=== PATIENT | male | born 1965 | race Caucasian/White ===

== ENCOUNTER 2017-03-28 19:53 | Emergency (ER) | payer MEDICAID ==
[~2017-03-28] VITALS: Ht 172.7 cm; Wt 145.1 kg
[~2017-03-28 19:53] MED LIST: ALBU2.5V13 NEB; AMLO10TA2 PO; Acetaminophen PO; BISA10SU12 RC; Blood Sugar Diagnostic VI; CALC667C PO; CARV25TA2 PO; CLON0.2T12 PO; DEXT50DI8 IV; FERR-58 PO; FLUT16SP NS; FOLI0.8T2 PO; FURO-152 PO; GLIM1TAB PO; HEPA50007 SQ; HYDR28.3 TOP; HYDR50TA68 PO; INSU100V28 SQ; LACT10SO7 GT; MENT71OI TOP; Metoclopramide Hcl PO; PANT40TA2 PO
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
--- NOTE | 2017-03-28 22:00 | NUR ---
Dr. Herron at bedside for MSE, awaiting further orders.
--- NOTE | 2017-03-28 22:20 | NUR ---
x-rays obtained, pt waiting for CT
[2017-03-28] MEDS: IBUPROFEN 800 MG TABLET PO ONE (22:35)
[2017-03-28] MEDS: TDAP DIPH,PERTUSS,TET VAC/PF 0.5 ML DISP.SYRIN IM ONE (22:35)
--- NOTE | 2017-03-28 22:40 | NUR ---
Pt medicated for discomfort, will monitor for effects of medication. Pt also given tdap, will monitor for any adverse reactions.
[2017-03-28] MEDS ORDERED: IBUPROFEN 800 MG TABLET ONE (22:43)
[2017-03-28] MEDS ORDERED: TDAP DIPH,PERTUSS,TET VAC/PF 0.5 ML DISP.SYRIN IM ONE (22:44)
--- NOTE | 2017-03-28 23:45 | NUR ---
Pt to and from CT via [facility].
[2017-03-29] MEDS: OXYCODONE/APAP 5-325 MG TABLET PO ONE (00:24)
--- NOTE | 2017-03-29 00:25 | NUR ---
Pt stable for discharge per Dr. Herorn. Pt given ACI. Pt verbalized understanding of dc instructions. Pt ambulated out of ER with steady gait to wr to wait for ride home.
[2017-03-29] MEDS ORDERED: OXYCODONE/APAP 5-325 MG TABLET ONE (00:34)
[2017-03-29 01:02] VITALS: BP 158/80
== END 2017-03-29 00:25 | disposition home or self-care (01) ==
LOC: ER 19:54
DX: S80.211A Abrasion, right knee, initial encounter (principal); I10 Essential (primary) hypertension; E78.00 Pure hypercholesterolemia, unspecified; E11.9 Type 2 diabetes mellitus without complications; K21.9 Gastro-esophageal reflux disease without esophagitis; Z88.0 Allergy status to penicillin; Z88.2 Allergy status to sulfonamides; Z86.74 Personal history of sudden cardiac arrest; Z98.890 Other specified postprocedural states; V29.9XXA Motorcycle rider (driver) (passenger) injured in unspecified traffic accident, initial encounter; Y93.89 Activity, other specified; Y92.413 State road as the place of occurrence of the external cause; Y99.8 Other external cause status
CPT/HCPCS: 72125; 73060; 73564 ×2; 73590; 73610; 90471; 90715; 93971; 99284; A4663

== ENCOUNTER 2018-01-23 16:01 | Emergency (ER) | payer MEDICAID ==
[~2018-01-23] VITALS: Ht 172.7 cm; Wt 152.0 kg
[~2018-01-23 16:01] MED LIST changes: -AMLO10TA2 PO; +AMLO10TA6 PO; -FERR-58 PO; +FERR325T24 PO
--- NOTE | 2018-01-23 16:13 | NUR ---
ROBY Kwong at the bedside for MSE.
[2018-01-23 16:33] VITALS: BP 146/80
--- NOTE | 2018-01-23 16:34 | NUR ---
Patient discharged to home in stable conditon. Written and verbal after care instructions given. Patient verbalizes understanding of instructions.
== END 2018-01-23 16:41 | disposition home or self-care (01) ==
LOC: ER 16:01
DX: H00.011 Hordeolum externum right upper eyelid (principal); I10 Essential (primary) hypertension; E78.00 Pure hypercholesterolemia, unspecified; K21.9 Gastro-esophageal reflux disease without esophagitis; E11.9 Type 2 diabetes mellitus without complications; Z88.2 Allergy status to sulfonamides; Z88.0 Allergy status to penicillin
CPT/HCPCS: 99283; A4663

== ENCOUNTER 2019-03-01 15:58 | Emergency (ER) | payer MEDICAID, OTHER ==
[~2019-03-01] VITALS: Ht 172.7 cm; Wt 152.0 kg
[~2019-03-01 15:58] MED LIST changes: -AMLO10TA6 PO; +AMLO10TA7 PO
--- NOTE | 2019-03-01 16:10 | NUR ---
Admit a 54yo male in rm 2A, ambulatory and morbidly obese with a c/o acute mid upper back pain level 8. Pt is very pleasant and friendly.
--- NOTE | 2019-03-01 16:15 | NUR ---
Seen and examined by MD with new orders.
[2019-03-01] MEDS ORDERED: HYDROCODONE/APAP 10-325 MG TABLET ONE (16:27)
[2019-03-01] MEDS ORDERED: HYDROCODONE/APAP 10-325 MG TABLET PO ONE (16:30)
--- NOTE | 2019-03-01 17:31 | NUR ---
Patient discharged to home in stable conditon. Written and verbal after care instructions given. Patient verbalizes understanding of instructions.
== END 2019-03-01 17:36 | disposition home or self-care (01) ==
LOC: ER 15:59
DX: M54.9 Dorsalgia, unspecified (principal); I10 Essential (primary) hypertension; E78.00 Pure hypercholesterolemia, unspecified; K21.9 Gastro-esophageal reflux disease without esophagitis; E11.9 Type 2 diabetes mellitus without complications; Z88.0 Allergy status to penicillin; Z88.2 Allergy status to sulfonamides; Z79.4 Long term (current) use of insulin; Z79.899 Other long term (current) drug therapy
CPT/HCPCS: 93005; A4663